=== PATIENT | male | born 1965 ===

== ENCOUNTER 2019-01-08 02:13 | Emergency (ER) | payer MEDICARE ==
[2019-01-08 02:40] VITALS: O2SAT 96
--- NOTE | 2019-01-08 03:56 | C.PDOC ---
History Of Present Illness 53 year old male with PMHx fo seizures is brought to the ED by EMS for evaluation. Patient c/o left arm pain, states "I always have this pain, I want to know what wrong". Patient denies fever, chills, headache, nausea, vomit, diarrhea, weakness, numbness, injury, fall, trauma. Time Seen by Provider: 01/08/19 02:45 Chief Complaint (Nursing): Upper Extremity Problem/Injury History Per: Patient, EMS History/Exam Limitations: intoxication Onset/Duration Of Symptoms: Days Current Symptoms Are (Timing): Still Present Recent travel outside of the [place]: No Additional History Per: Patient Past Medical History Reviewed: Historical Data, Nursing Documentation, Vital Signs Vital Signs: Last Vital Signs Temp 97.3 F L 01/08/19 02:28 Pulse 109 H 01/08/19 02:28 Resp 22 01/08/19 02:28 BP 106/71 01/08/19 02:28 Pulse Ox 96 01/08/19 02:28 - Medical History PMH: Seizures Surgical History: No Surg Hx Family History: States: Unknown Family Hx - Social History Hx Alcohol Use: No Hx Substance Use: No - Immunization History Hx Tetanus Toxoid Vaccination: No Hx Influenza Vaccination: No Hx Pneumococcal Vaccination: No Review Of Systems Constitutional: Negative for: Fever, Chills Eyes: Negative for: Vision Change Cardiovascular: Negative for: Chest Pain Respiratory: Negative for: Shortness of Breath Gastrointestinal: Negative for: Nausea, Vomiting, Abdominal Pain Musculoskeletal: Positive for: Arm Pain Skin: Negative for: Rash Neurological: Negative for: Weakness, Numbness Psych: Negative for: Depression, Suicidal ideation Physical Exam - Physical Exam Appears: Non-toxic, No Acute Distress Skin: Normal Color, Warm, Dry Head: Atraumatic, Normacephalic, Other (old healing scars right facial area) Eye(s): bilateral: Normal Inspection, PERRL, EOMI Nose: No Septal Hematoma, Other (old healing scars to the nose) Oral Mucosa: Moist Neck: Normal ROM, Supple Chest: Symmetrical Cardiovascular: Rhythm Regular Respiratory: Normal Breath Sounds, No Rales, No Rhonchi, No Wheezing Gastrointestinal/Abdominal: Soft, No Tenderness, No Guarding Extremity: Normal ROM, No Tenderness, Capillary Refill (< 2 seconds), No Swelling, Other (left elbow effusion, non tender, no erythema, non fluctuant, no warmth) Pulses: Left Radial: Normal, Right Radial: Normal Neurological/Psych: Oriented x3, Normal Speech, Normal Cognition, Normal Motor, Normal Sensation Gait: Steady ED Course And Treatment O2 Sat by Pulse Oximetry: 96 (ON RA) Pulse Ox Interpretation: Normal Progress Note: Patient admits to drinking alcohol tonight, requests to be able to sleep until the morning. Disposition Counseled Patient/Family Regarding: Diagnosis, Need For Followup, Rx Given - Disposition Referrals: [facility] [Outside] Disposition: HOME/ ROUTINE Disposition Time: 05:44 Condition: STABLE Additional Instructions: Please follow up with PMD / clinic Take motrin/ tylenol for pain Return to ER if worse Instructions: Elbow Tendinopathy (Tennis and Golf Elbow) Forms: [employer] (Nauruan) - Clinical Impression Clinical Impression: Bursitis - PA / P[employer]INE / Resident Statement MD/DO has reviewed & agrees with the documentation as recorded. - Scribe Statement The provider has reviewed the documentation as recorded by the Scribe Marco Zmaora All medical record entries made by the Scribe were at my direction and personally dictated by me. I have reviewed the chart and agree that the record accurately reflects my personal performance of the history, physical exam, medical decision making, and the department course for this patient. I have also personally directed, reviewed, and agree with the discharge instructions and disposition.
[2019-01-08 05:38] VITALS: BP 146/78; RESP 20; TEMP 97.6
[2019-01-08 05:49] VITALS: PULSE 101
== END 2019-01-08 05:58 | disposition home or self-care (01) ==
LOC: C.ER 02:13
DX: M71.522 Other bursitis, not elsewhere classified, left elbow (principal)